=== PATIENT | male | born 1960 | race Asian ===

== ENCOUNTER 2018-10-13 11:04 | Outpatient (CLI) | payer OTHER ==
[~2018-10-13 11:04] MED LIST: BIOFREEZE ROLL ON EX; CARV25TA PO; COZAAR100 MG PO; DIGITEK0.125 MG PO; FURO40TA93 PO; HYDRALAZINE HY100 MG PO; ISOSORB DIN10 MG PO; NIFE60TA5 PO; SIMV20TA2 PO
== END 2018-10-13 19:38 | disposition home or self-care (01) ==
LOC: LABW 11:04
DX: R80.8 Other proteinuria (principal)
CPT/HCPCS: 84156